=== PATIENT | female | born 1975 | race Caucasian/White ===

== ENCOUNTER 2016-09-28 17:51 | Emergency (ER) | payer SELFPAY ==
[~2016-09-28] VITALS: Ht 154.9 cm; Wt 86.8 kg
[~2016-09-28 17:51] MED LIST: CLIN150 PO; ENDO7.5T10 PO; GABA100C4 PO; HYDR-3580 PO; NORV5TAB PO
[2016-09-28] MEDS ORDERED: ACETAMINOPHEN/HYDROcodone 325 MG/5 MG TAB PO ONE (18:15)
[2016-09-28 18:16] VITALS: BP 156/70; PULSE 63; RESP 16; TEMP 98.1; O2SAT 98
[2016-09-28] MEDS ORDERED: BP med (18:16)
[2016-09-28] MEDS ORDERED: GABA300C5 PO (18:16)
[2016-09-28] MEDS ORDERED: HYDR-3580 PO (18:16)
--- NOTE | 2016-09-28 18:17 | PD ---
HPI Chief Complaint: Numbness/Tingling Time Seen by Provider: 18:13 Travel History International Travel<30 days: Yes Contact w/Intl Traveler<30days: Yes History of Present Illness HPI Is a 41 year-old woman presents to the emergency department complaining of pain in her right hand. She had an ulnar nerve release done about a year or so ago with Dr. Castillo. She saw her yesterday because she thought she was on her current symptoms. She was placed on what sounds like a posterior long-arm splint. She is having worsening symptoms overnight she went to the office and was sent here without evaluation as the office was closed. She describes pain and numbness in the right arm. She also had some numbness in the left arm that was transient. She is due to have an ulnar nerve release on the left side as well. She's had multiple studies done. She reports she also had an MRI done of her neck or ago before the decision to proceed with her right sided surgery. History Past Medical History Narrative Medical Back problems Social History Alcohol Use: No Tobacco Use: No Allergies-Medications (Allergen,Severity, Reaction): Coded Allergies: No Known Allergies (Verified , 03/02/15) Reported Meds & Prescriptions Reported Meds & Active Scripts Active Cleocin (Clindamycin HCl) 150 Mg Cap 300 Mg PO Q6 Endocet 7.5/325 (Oxycodone/Acetaminophen) Tab 1 Tab PO Q6H PRN Reported Hydrocodone/Acetaminophen 7.5 mg/325 mg 1 Tab 1 Tab PO Q4H PRN Gabapentin 100 Mg Cap 100 Mg PO BID Norvasc (Amlodipine Besylate) 5 Mg Tab 5 Mg PO DAILY Review of Systems Except as stated in HPI: all other systems reviewed are Neg Physical Exam Narrative GENERAL: Well-appearing 41 year-old woman, no acute distress. SKIN: Warm and dry. CARDIOVASCULAR: Warm and well perfused. RESPIRATORY: Normal rate and effort. MUSCULOSKELETAL: Focused evaluation of the right upper extremity reveals 2 areas of scarring on the dorsum of the wrist on the ulnar side of the elbow. She has full range of motion of the hand and the elbow. She describes some subjective sensory changes over the entire dorsum of the forearm and the hand. She has full radial/ulnar/median nerve strength in the hand. Wrist elbow and shoulder strength is also full and intact throughout. She has reports reflexes throughout both upper extremities. NEUROLOGICAL: Awake and alert. No gross deficits. Data Data Orders Acetamin-Hydrocod 325-5 Mg ([place] 5-325 (09/28/16 18:15) MDM Medical Decision Making Medical Screen Exam Complete: Yes Emergency Medical Condition: Yes Differential Diagnosis Neurapraxia, peripheral neuropathy, radiculopathy, stroke, other Narrative Course Medical decision-making This is a 41 year-old woman, well-appearing, will. Worsening pain and paresthesias in the right arm. There is related to previous ulnar nerve surgery on both sides entirely clear. States it feels the same. She is no other evidence of stroke. She has normal neurologic exam. Recommend outpatient follow-up with hand surgery as planned. Diagnosis Primary Impression: Paresthesia of right upper extremity Additional Instructions: Follow-up with your primary doctor and with your hand surgeon as discussed. Return to the emergency department for any new or worsening symptoms. Med/Other Pt SpecificInfo: No Change to Meds Disposition: 01 DISCHARGE HOME Condition: Stable Enrique West MD Sep 28, 2016 18:17
--- NOTE | 2016-09-28 19:38 | PD ---
Data Data Last Documented VS Vital Signs Date Time Temp Pulse Resp B/P Pulse Ox O2 Delivery O2 Flow Rate FiO2 09/28/16 18:16 98.1 63 16 156/70 98 Orders Acetamin-Hydrocod 325-5 Mg ([place] 5-325 (09/28/16 18:15) [facility] Medical Record Reviewed: Yes Supervised Visit with NAVIN: No Narrative Course asked to enter order RUE long arm splint for patient's RUE Diagnosis Primary Impression: Paresthesia of right upper extremity Referrals: WILD LACY D.O. (PCP) call for appointment Patient Instructions: General Instructions, Paresthesia (ED) Departure Forms: Tests/Procedures Additional Instruction: Follow-up with your primary doctor and with your hand surgeon as discussed. Return to the emergency department for any new or worsening symptoms. Disposition: 01 DISCHARGE HOME Condition: Stable Hanna Bullard MD Sep 28, 2016 19:38
[2016-09-28 20:41] VITALS: BP_SYST 14; BP_SYST 145; BP_DIAS 75; PULSE 88; RESP 18; O2SAT 99
[2016-09-28 20:43] VITALS: RESP 18
--- NOTE | 2016-09-29 17:03 | EKG ---
Date Performed: 09/28/2016 Time Performed: 18:05:42 PTAGE: 41 years EKG: Sinus rhythm POSSIBLE ANTERIOR MYOCARDIAL INFARCTION POSSIBLE INFERIOR MYOCARDIAL INFARCTION Diffuse ST-T chages anteriorly. Clinical correlation is recommended ABNORMAL ECG. NO PREVIOUS TRACING DOCTOR: Jose Naik Interpretating Date/Time 09/29/2016 17:02:20
== END 2016-09-28 20:44 | disposition home or self-care (01) ==
LOC: PHED 17:51
DX: R20.2 Paresthesia of skin (principal); Z98.890 Other specified postprocedural states
CPT/HCPCS: 29105; 93005

== ENCOUNTER 2017-02-01 23:21 | Inpatient (IN) | payer SELFPAY ==
[~2017-02-01] VITALS: Ht 157.5 cm; Wt 67.1 kg
[~2017-02-01 23:21] MED LIST changes: +BP med; -CLIN150 PO; -ENDO7.5T10 PO; -GABA100C4 PO; +GABA300C5 PO; -NORV5TAB PO
[2017-02-01] MEDS ORDERED: FLUO1TAB3 PO (23:42)
[2017-02-01] MEDS ORDERED: BENA40TA PO (23:42)
--- NOTE | 2017-02-01 23:44 | PD ---
HPI Chief Complaint: Cold / Flu Symptoms Time Seen by Provider: 23:40 Travel History International Travel<30 days: No Contact w/Intl Traveler<30days: No Traveled to known affect area: No History of Present Illness HPI The patient is a 41-year-old female that complains of a cough productive of a slight amount of yellow sputum for one week. She denies any fever but does have bilateral back pain with a cough. She states she is short of breath and has been wheezing. She does not have a nebulizer machine at home. She has a history of chronic back pain and is chronically on hydrocodone/acetaminophen 7.5 /325. She also takes gabapentin and Benzapril for her hypertension. PFSH Past Medical History Hx Anticoagulant Therapy: No Blood Disorders: No Anxiety: Yes Cancer: No Cardiovascular Problems: No Chemotherapy: No Cerebrovascular Accident: No Diabetes: No Diminished Hearing: No Endocrine: No Gastrointestinal Disorders: No Genitourinary: No Hypertension: Yes Immune Disorder: No Musculoskeletal: Yes Neurologic: No Psychiatric: No Reproductive: No Respiratory: No Past Surgical History Hysterectomy: No Other Surgery: Yes (HERNIA) Social History Alcohol Use: Yes (occ) Tobacco Use: No Substance Use: No Allergies-Medications (Allergen,Severity, Reaction): Coded Allergies: No Known Allergies (Verified Adverse Reaction, Unknown, 02/01/17) Reported Meds & Prescriptions Reported Meds & Active Scripts Active Reported Fluoxetine (Fluoxetine HCl) 20 Mg Tab 20 Mg PO DAILY Benazepril (Benazepril HCl) 40 Mg Tab 40 Mg PO DAILY Hydrocodone-Acetaminophen 7.5-325 mg Tab 1 Tab PO Q4H PRN Gabapentin 300 Mg Cap 300 Mg PO BID Review of Systems Except as stated in HPI: all other systems reviewed are Neg Physical Exam Narrative GENERAL: The patient is alert, oriented 3 and slight respiratory distress. SKIN: Focused skin assessment warm/dry. HEAD: Atraumatic. Normocephalic. EYES: Pupils equal and round. No scleral icterus. No injection or drainage. ENT: No nasal bleeding or discharge. Mucous membranes pink and moist. NECK: Trachea midline. No JVD. CARDIOVASCULAR: Regular rate and rhythm. No murmur appreciated. RESPIRATORY: No accessory muscle use. A few widely scattered wheezes are heard in all lung foreman. Breath sounds equal bilaterally. GASTROINTESTINAL: Abdomen soft, non-tender, nondistended. Hepatic and splenic margins not palpable. MUSCULOSKELETAL: No obvious deformities. No clubbing. No cyanosis. No edema. NEUROLOGICAL: Awake and alert. No obvious cranial nerve deficits. Motor grossly within normal limits. Normal speech. PSYCHIATRIC: Appropriate mood and affect; insight and judgment normal. Data Data Last Documented VS Vital Signs Date Time Temp Pulse Resp B/P (MAP) Pulse Ox O2 Delivery O2 Flow Rate FiO2 02/02/17 02:47 78 18 127/60 (82) 100 Room Air 02/01/17 23:48 99.0 Orders Orders Chest, Pa & Lat (02/01/17 23:41) Albuterol-Ipratropium Neb (Duoneb Neb) (02/01/17 23:45) Electrocardiogram (02/02/17 01:34) Complete Blood Count With Diff (02/02/17 01:34) Comprehensive Metabolic Panel (02/02/17 01:34) Lactic Acid Sepsis Protocol (02/02/17 01:34) Pneumococcal Urinary Antigen (02/02/17 01:34) Influenzae A/B Antigen (02/02/17 01:34) Urinalysis - C+S If Indicated (02/02/17 01:34) Blood Culture (02/02/17 01:34) Legionella Urinary Antigen (02/02/17 01:34) Arterial Blood Gas (Abg) (02/02/17 01:34) Sodium Chloride 0.9% Flush (Ns Flush) (02/02/17 01:45) Ceftriaxone Inj (Rocephin Inj) (02/02/17 01:45) Azithromycin Inj (Zithromax Inj) (02/02/17 01:45) Sodium Chlor 0.9% 1000 Ml Inj (Ns 1000 M (02/02/17 02:45) Potassium Chloride (Kcl) (02/02/17 02:45) Admit Order (Ed Use Only) (02/02/17 02:52) Labs Laboratory Tests Test 02/02/17 01:42 02/02/17 02:00 Blood Gas Puncture Site RT RADIAL Blood Gas Patient Temperature 98.6 Blood Gas HCO3 24 mmol/L Blood Gas Base Excess 0.4 mmol/L Blood Gas Oxygen Saturation 92 % Arterial Blood pH 7.44 Arterial Blood Partial Pressure CO2 36 mmHG Arterial Blood Partial Pressure O2 85 mmHG Arterial Blood Oxygen Content 13.5 Vol % Arterial Blood Carboxyhemoglobin 3.7 % Arterial Blood Methemoglobin 1.0 % Blood Gas Hemoglobin 10.3 G/DL Blood Gas Inspired Oxygen 21 % White Blood Count 7.0 TH/MM3 Red Blood Count 3.33 MIL/MM3 Hemoglobin 10.2 GM/DL Hematocrit 31.7 % Mean Corpuscular Volume 95.2 FL Mean Corpuscular Hemoglobin 30.7 PG Mean Corpuscular Hemoglobin Concent 32.3 % Red Cell Distribution Width 14.1 % Platelet Count 172 TH/MM3 Mean Platelet Volume 7.9 FL Neutrophils (%) (Auto) 76.7 % Lymphocytes (%) (Auto) 13.7 % Monocytes (%) (Auto) 8.9 % Eosinophils (%) (Auto) 0.3 % Basophils (%) (Auto) 0.4 % Neutrophils # (Auto) 5.4 TH/MM3 Lymphocytes # (Auto) 1.0 TH/MM3 Monocytes # (Auto) 0.6 TH/MM3 Eosinophils # (Auto) 0.0 TH/MM3 Basophils # (Auto) 0.0 TH/MM3 CBC Comment DIFF FINAL Differential Comment Blood Urea Nitrogen 7 MG/DL Creatinine 0.48 MG/DL Random Glucose 100 MG/DL Total Protein 6.0 GM/DL Albumin 2.7 GM/DL Calcium Level 8.0 MG/DL Alkaline Phosphatase 66 U/L Aspartate Amino Transf (AST/SGOT) 16 U/L Alanine Aminotransferase (ALT/SGPT) 15 U/L Total Bilirubin 0.3 MG/DL Sodium Level 138 MEQ/L Potassium Level 2.8 MEQ/L Chloride Level 105 MEQ/L Carbon Dioxide Level 26.1 MEQ/L Anion Gap 7 MEQ/L Estimat Glomerular Filtration Rate 142 ML/MIN Lactic Acid Level 1.5 mmol/L [facility] Medical Decision Making Medical Screen Exam Complete: Yes Emergency Medical Condition: Yes Medical Record Reviewed: Yes Interpretation(s) The chest x-ray shows bilateral pneumonia. The CBC shows a hemoglobin of 10.2 and hematocrit of 31.7 with 77% neutrophils but is otherwise unremarkable. The blood gases show pH 7.44, CO2 36, PO2 85 with O2 sat 92%. Differential Diagnosis Viral pneumonia, bacterial pneumonia, atypical bacterial pneumonia, bronchiolitis, asthma, congestive heart failure-unlikely, hypoxemia Narrative Course The patient has bilateral pneumonia. She is extremely weak and wants to be admitted. She does not believe that she can make it at home. I discussed the patient with Dr. Villanueva, the patient will be admitted to her. Diagnosis Primary Impression: Bilateral pneumonia Admitting Information Admitting Physician Requests: Admit Haile Sánchez MD Feb 01, 2017 23:44
[2017-02-01 23:48] VITALS: BP 120/58; PULSE 68; RESP 20; TEMP 99; O2SAT 97
[2017-02-01] MEDS: RESP: ALBUTEROL 2.5 MG/IPRATROPIUM 0.5 MG NEB (SCH) INH (23:49)
[2017-02-02 00:37] VITALS: PULSE 86; RESP 18; O2SAT 96
--- NOTE | 2017-02-02 00:59 | RADRPT ---
EXAM DATE/TIME: 02/02/2017 00:29 [place] COMPARISON: No previous studies available for comparison. INDICATIONS : Cough, chest congestion for 2 weeks MEDICAL HISTORY : None. SURGICAL HISTORY : None. ENCOUNTER: Initial ACUITY: 2 weeks PAIN SCORE: 5/10 LOCATION: Bilateral chest FINDINGS: PA and lateral views of the chest. Moderate severity bilateral lower lung zone predominant pulmonary opacity, predominantly interstitial.. Cardiomediastinal silhouette within normal limits. No evidence of pleural effusion or pneumothorax. CONCLUSION: Bilateral lower lung zone predominant pulmonary opacity. Differential diagnosis includes pulmonary ed blaise and infection. Chidi Aguilera MD on February 02, 2017 at 0:56 Board Certified Radiologist. This report was verified electronically.
[2017-02-02] MEDS ORDERED: AZITHROMYCIN INJ 500 MG in SODIUM CHLOR 0.9% 250 ML INJ 250 ML IV ONE (01:45)
[2017-02-02] MEDS ORDERED: SODIUM CHLORIDE 0.9% FLUSH 10 ML FLUSH IVF PRN (01:45)
[2017-02-02] MEDS ORDERED: cefTRIAXone INJ 1,000 MG in SODIUM CHLORIDE 0.9% INJ 100 ML IV ONE (01:45)
[2017-02-02 01:52] VITALS: BP 127/64; PULSE 85; RESP 18; O2SAT 95
[2017-02-02 01:56] LABS: BLOOD GAS BASE EXCESS 0.4 mmol/L (-2-2); BLOOD GAS CARBOXYHEMOGLOBIN 3.7 % (0-4); BLOOD GAS HCO3 24 mmol/L (22-26); BLOOD GAS O2 HGB SATURATION 92 % (90-100); BLOOD GAS OXYGEN CONTENT 13.5 Vol % (12.0-20.0); BLOOD GAS PCO2 36 mmHG (38-42); BLOOD GAS PO2 85 mmHG (61-120); BLOOD GAS TOTAL HGB 10.3 G/DL (12.0-16.0); CRITICAL VALUE NO; DRAW SITE RT RADIAL; FIO2 21 %; NUMBER OF ARTERIAL PUNCTURES 1; STAT YES; TEMP CORR TO 98.6; ULNAR PULSE Y
[2017-02-02 02:12] LABS: AUTOMATED NEUTROPHIL # 5.4 TH/MM3 (1.8-7.7); BASOPHIL % 0.4 % (0.0-2.0); EOSINOPHIL % 0.3 % (0.0-4.0); HEMATOCRIT 31.7 % (35.0-46.0); HEMO FLAGS DIFF FINAL; LYMPH % 13.7 % (9.0-44.0); MEAN CELL VOLUME 95.2 FL (80.0-100.0); MEAN CORPUSCULAR HEMOGLOBIN 30.7 PG (27.0-34.0); MEAN CORPUSCULAR HGB CONC 32.3 % (32.0-36.0); MONO % 8.9 % (0.0-8.0); NEUT % 76.7 % (16.0-70.0); PLATELET COUNT 172 TH/MM3 (150-450); RED BLOOD COUNT 3.33 MIL/MM3 (4.00-5.30); RED CELL DISTRIBUTION WIDTH 14.1 % (11.6-17.2)
[2017-02-02 02:33] LABS: ALKALINE PHOSPHATASE 66 U/L (45-117); ALT (GPT) 15 U/L (10-53); ANION GAP 7 MEQ/L (5-15); AST (GOT) 16 U/L (15-37); BICARBONATE 26.1 MEQ/L (21.0-32.0); BLOOD UREA NITROGEN 7 MG/DL (7-18); CHLORIDE 105 MEQ/L (98-107); GLOMERULAR FILTRATION RATE 142 ML/MIN (>89); SODIUM (NA) 138 MEQ/L (136-145); TOTAL BILIRUBIN ADULT 0.3 MG/DL (0.2-1.0)
[2017-02-02 02:34] LABS: POTASSIUM 2.8 MEQ/L (3.5-5.1)
[2017-02-02] MEDS: SODIUM CHLOR 0.9% 1000 ML INJ 1,000 ML IV SCH ×2 (02:42→03:23)
[2017-02-02] MEDS ORDERED: POTASSIUM CHLORIDE 20 MEQ CONTROLLED RELEASE TAB PO ONE (02:45)
[2017-02-02 02:47] VITALS: BP 127/60; PULSE 78; RESP 18; O2SAT 100
[2017-02-02] MEDS ORDERED: SODIUM CHLORIDE 0.9% FLUSH 10 ML FLUSH IV FLUSH PRN (03:00)
[2017-02-02] MEDS ORDERED: LACTULOSE SYRUP 20 GM/30 ML CUP PO PRN (03:00)
[2017-02-02] MEDS ORDERED: BISACODYL 10 MG SUPP RECTAL PRN (03:00)
[2017-02-02] MEDS ORDERED: RESP: ALBUTEROL 2.5 MG/IPRATROPIUM 0.5 MG NEB (PRN) NEB (03:00)
[2017-02-02] MEDS ORDERED: SENNOSIDES 8.6 MG TAB PO PRN (03:00)
[2017-02-02] MEDS ORDERED: ACETAMINOPHEN/HYDROcodone 325 MG/5 MG TAB PO PRN (03:00)
[2017-02-02] MEDS ORDERED: MAGNESIUM HYDROXIDE SUSP 30 ML CUP PO PRN (03:00)
[2017-02-02] MEDS ORDERED: ONDANSETRON HCL 4 MG/2 ML VIAL IVP PRN (03:00)
[2017-02-02] MEDS ORDERED: ACETAMINOPHEN 325 MG TAB PO PRN (03:00)
[2017-02-02] MEDS: ACETAMINOPHEN/HYDROcodone 325 MG/10 MG TAB PO PRN ×2 (03:22→11:11)
[2017-02-02 05:13] LABS: BLOOD, URINE NEG (NEG); GLUCOSE,URINE NEG (NEG); KETONE, URINE NEG (NEG); NITRITE,URINE NEG (NEG)
[2017-02-02 05:15] VITALS: BP 125/75; PULSE 71; RESP 17; TEMP 98; O2SAT 98
[2017-02-02 05:21] LABS: RBC, URINE 0-2 /hpf (0-3); SQUAMOUS EPITHELIAL CELL URINE 0-5 /hpf (0-5); URINE COLOR YELLOW (YELLW/STRAW); WBC, URINE 0-2 /hpf (0-5)
[2017-02-02 05:22] LABS: COMMENT (UR) CULT NOT INDICATED; CULTURE IF INDICATED CULT NOT INDICATED
[2017-02-02 08:00] VITALS: BP 131/78; PULSE 57; RESP 16; TEMP 98; O2SAT 98
[2017-02-02] MEDS ORDERED: DOCUSATE SODIUM 50 MG/SENNA 8.6 MG TAB PO SCH (09:00)
[2017-02-02] MEDS ORDERED: SODIUM CHLORIDE 0.9% FLUSH 10 ML FLUSH IV FLUSH SCH (09:00)
[2017-02-02 12:00] VITALS: BP 144/69; PULSE 58; RESP 18; TEMP 97.7; O2SAT 96
--- NOTE | 2017-02-02 12:25 | HHI.HP ---
HPI Service [facility] Primary Care Physician Rafa Cardenas D.O. Admission Diagnosis Bilateral pneumonia Diagnoses: (1) Bilateral pneumonia Chief Complaint: Productive cough and dyspnea Travel History International Travel<30 Days: No Contact w/Intl Traveler <30 Da: No Traveled to Known Affected Are: No History of Present Illness Written by Nesha Ni, acting as scribe for Dr. Rob on 02/02/17 at 12:17. This is a 41-year-old female patient with a known medical history of hypertension, peripheral neuropathy and tobacco use who presented to the ED with complaints of worsening productive cough. Patient states that the cough started roughly 1 week ago and has progressively got worse. Does admit to subjective fevers and yellow colored sputum. Does admit to associated shortness of breath and wheezing. Denies any recent headache, chest pain, abdominal pain, n/v/d or dysuria. Denies any recent sick contacts or recent antibiotic use. Does admit to current tobacco use. PCP is Dr. Cardenas. Denies any prior pneumonia or lung disease in the past. Review of Systems Constitutional: COMPLAINS OF: Fever, Chills Eyes: DENIES: Diplopia Respiratory: COMPLAINS OF: Cough, Sputum production, Shortness of breath Cardiovascular: DENIES: Chest pain, Palpitations Gastrointestinal: DENIES: Abdominal pain, Black stools, Bloody stools, Constipation, Diarrhea, Nausea, Vomiting Musculoskeletal: DENIES: Joint pain Psychiatric: DENIES: Anxiety Except as stated in HPI: all other systems reviewed are Neg Past Family Social History Past Medical History Hypertension Peripheral neuropathy Tobacco abuse Past Surgical History Hysterectomy Hernia repair Back surgery Right hand abscess Ulnar repair Reported Medications Active Reported Fluoxetine (Fluoxetine HCl) 20 Mg Tab 20 Mg PO DAILY Benazepril (Benazepril HCl) 40 Mg Tab 40 Mg PO DAILY Hydrocodone-Acetaminophen 7.5-325 mg Tab 1 Tab PO Q4H PRN Gabapentin 300 Mg Cap 300 Mg PO BID Allergies: Coded Allergies: No Known Allergies (Verified Allergy, Unknown, 02/02/17) Active Ordered Medications Current Medications Medications (Trade) Dose Ordered Sig/Bessie Route Start Time Stop Time Status Last Admin Ceftriaxone Sodium 1000 mg/ Sodium Chloride 100 ml @ 200 mls/hr Q24H IV 02/02/17 23:00 Azithromycin 500 mg/Sodium Chloride 250 ml @ 250 mls/hr Q24H IV 02/02/17 23:00 (Duoneb Neb) 1 ampule Q4HR NEB PRN NEB 02/02/17 03:00 (NS Flush) 2 ml UNSCH PRN IV FLUSH 02/02/17 03:00 (NS Flush) 2 ml BID IV FLUSH 02/02/17 09:00 (Zofran Inj) 4 mg Q6H PRN IVP 02/02/17 03:00 (Tylenol) 650 mg Q6H PRN PO 02/02/17 03:00 ([place] 5-325 Mg) 1 tab Q4H PRN PO 02/02/17 03:00 ([place] 10-325 Mg) 1 tab Q4H PRN PO 02/02/17 03:00 02/02/17 11:11 (Isabelle-Colace) 1 tab BID PO 02/02/17 09:00 (Milk Of Magnesia Liq) 30 ml Q12H PRN PO 02/02/17 03:00 (Senokot) 17.2 mg Q12H PRN PO 02/02/17 03:00 (Dulcolax Supp) 10 mg DAILY PRN RECTAL 02/02/17 03:00 (Lactulose Liq) 30 ml DAILY PRN PO 02/02/17 03:00 (Flu (Quadrivalent) Vaccine Inj) 0.5 ml ONCE ONCE IM 02/03/17 10:00 02/03/17 10:01 Family History Father at the age of 40 of an [place]. Sister does have a history of cardiovascular disease. Social History Does admit to smoking 1/2 ppd currently x 1 year. Had quit for 10 years and prior to that she smoked 2 ppd x 12 years. Admits to occasional marijuana use. Physical Exam Vital Signs Vital Signs Date Time Temp Pulse Resp B/P (MAP) Pulse Ox O2 Delivery O2 Flow Rate FiO2 02/02/17 08:00 98.0 57 16 131/78 (95) 98 02/02/17 05:15 98.0 71 17 125/75 (92) 98 02/02/17 02:47 78 18 127/60 (82) 100 Room Air 02/02/17 01:52 85 18 127/64 (85) 95 Room Air 02/02/17 00:37 86 18 96 Room Air 02/01/17 23:48 99.0 68 20 120/58 (78) 97 Room Air 02/01/17 23:44 97 Room Air Physical Exam GENERAL: This is a well-nourished, well-developed female patient, lying in bed in no apparent distress. SKIN: No rashes, ecchymoses or lesions. Warm and dry. HEENT: Atraumatic. Normocephalic. Pupils equal round and reactive. Extraocular motions intact. No scleral icterus. No injection or drainage. Nose without bleeding. Airway patent. NECK: Trachea midline. No JVD. Supple. CARDIOVASCULAR: Regular rate and rhythm without murmurs, gallops, or rubs. RESPIRATORY: Clear to auscultation. Breath sounds equal bilaterally. No wheezes , rales, or rhonchi. GASTROINTESTINAL: Abdomen soft, non-tender, nondistended. No guarding. MUSCULOSKELETAL: Extremities without clubbing, cyanosis, or edema. No joint tenderness, effusion, or edema noted. NEUROLOGICAL: Awake and alert. Cranial nerves II through XII intact. Motor and sensory grossly within normal limits. Five out of 5 muscle strength in all muscle groups. Normal speech. Laboratory Laboratory Tests Test 02/02/17 01:42 02/02/17 02:00 02/02/17 04:45 Blood Gas Puncture Site RT RADIAL Blood Gas Patient Temperature 98.6 Blood Gas HCO3 24 Blood Gas Base Excess 0.4 Blood Gas Oxygen Saturation 92 Arterial Blood pH 7.44 Arterial Blood Partial Pressure CO2 36 Arterial Blood Partial Pressure O2 85 Arterial Blood Oxygen Content 13.5 Arterial Blood Carboxyhemoglobin 3.7 Arterial Blood Methemoglobin 1.0 Blood Gas Hemoglobin 10.3 Blood Gas Inspired Oxygen 21 White Blood Count 7.0 Red Blood Count 3.33 Hemoglobin 10.2 Hematocrit 31.7 Mean Corpuscular Volume 95.2 Mean Corpuscular Hemoglobin 30.7 Mean Corpuscular Hemoglobin Concent 32.3 Red Cell Distribution Width 14.1 Platelet Count 172 Mean Platelet Volume 7.9 Neutrophils (%) (Auto) 76.7 Lymphocytes (%) (Auto) 13.7 Monocytes (%) (Auto) 8.9 Eosinophils (%) (Auto) 0.3 Basophils (%) (Auto) 0.4 Neutrophils # (Auto) 5.4 Lymphocytes # (Auto) 1.0 Monocytes # (Auto) 0.6 Eosinophils # (Auto) 0.0 Basophils # (Auto) 0.0 CBC Comment DIFF FINAL Differential Comment Blood Urea Nitrogen 7 Creatinine 0.48 Random Glucose 100 Total Protein 6.0 Albumin 2.7 Calcium Level 8.0 Alkaline Phosphatase 66 Aspartate Amino Transf (AST/SGOT) 16 Alanine Aminotransferase (ALT/SGPT) 15 Total Bilirubin 0.3 Sodium Level 138 Potassium Level 2.8 Chloride Level 105 Carbon Dioxide Level 26.1 Anion Gap 7 Estimat Glomerular Filtration Rate 142 Lactic Acid Level 1.5 Urine Color YELLOW Urine Turbidity CLEAR Urine pH 6.0 Urine Specific [place] 1.018 Urine Protein NEG Urine Glucose (UA) NEG Urine Ketones NEG Urine Occult Blood NEG Urine Nitrite NEG Urine Bilirubin NEG Urine Leukocyte Esterase NEG Urine RBC 0-2 Urine WBC 0-2 Urine Squamous Epithelial Cells 0-5 Urine Bacteria NONE Microscopic Urinalysis Comment CULT NOT INDICATED Date/Time Source Procedure Growth Status 02/02/17 02:04 Blood Peripheral Aerobic Blood Culture Pending Received 02/02/17 02:04 Blood Peripheral Anaerobic Blood Culture Pending Received 02/02/17 02:00 Nasal Washing Influenza Types A,B Antigen (TOYIN) - Final NEGATIVE FOR FLU A AND B ANTIGEN.... Complete 02/02/17 04:45 Urine Random Urine Legionella Antigen - Final PRESUMPTIVE NEGATIVE FOR LEGIONELLA P... Complete 02/02/17 04:45 Urine Random Urine Streptococcus pneumoniae Antigen (M - Final PRESUMPTIVE NEGATIVE FOR STREPTOCOCCU... Complete Result Diagram: 02/02/17 0200 02/02/17 0200 Imaging Last Impressions Chest X-Ray 02/01/17 2341 Signed Impressions: Service Date/Time: Thursday, February 02, 2017 00:29 - CONCLUSION: Bilateral lower lung zone predominant pulmonary opacity. Differential diagnosis includes pulmonary edema and infection. Chidi Aguilera MD Septic Shock Reassessment Septic shock perfusion: reassessment completed Caprini VTE Risk Assessment Caprini VTE Risk Assessment: No/Low Risk (score <= 1) Caprini Risk Assessment Model Point Value = 1 Point Value = 2 Point Value = 3 Point Value = 5 Age 41-60 Minor surgery BMI > 25 kg/m2 Swollen legs Varicose veins or History of unexplained or recurrent spontaneous Oral contraceptives or hormone replacement Sepsis (< 1 month) Serious lung disease, including pneumonia (< 1 month) Abnormal pulmonary function Acute myocardial infarction Congestive heart failure (< 1 month) History of inflammatory bowel disease Medical patient at bed rest Age 61-74 Arthroscopic surgery Major open surgery (> 45 min) Laparoscopic surgery (> 45 min) Malignancy Confined to bed (> 72 hours) Immobilizing plaster cast Central venous access Age >= 75 History of VTE Family history of VTE Factor V Leiden Prothrombin [id number] Lupus anticoagulant Anticardiolipin antibodies Elevated serum homocysteine Heparin-induced thrombocytopenia Other congenital or acquired thrombophilia Stroke (< 1 month) Elective arthroplasty Hip, pelvis, or leg fracture Acute spinal cord injury (< 1 month) Prophylaxis Regimen Total Risk Factor Score Risk Level Prophylaxis Regimen 0-1 Low Early ambulation 2 Moderate Order ONE of the following: *Sequential Compression Device (SCD) *Heparin 5000 units SQ BID 3-4 Higher Order ONE of the following medications: *Heparin 5000 units SQ TID *Enoxaparin/Lovenox 40 mg SQ daily (WT < 150 kg, CrCl > 30 mL/min) *Enoxaparin/Lovenox 30 mg SQ daily (WT < 150 kg, CrCl > 10-29 mL/min) *Enoxaparin/Lovenox 30 mg SQ BID (WT < 150 kg, CrCl > 30 mL/min) AND/OR *Sequential Compression Device (SCD) 5 or more Highest Order ONE of the following medications: *Heparin 5000 units SQ TID (Preferred with Epidurals) *Enoxaparin/Lovenox 40 mg SQ daily (WT < 150 kg, CrCl > 30 mL/min) *Enoxaparin/Lovenox 30 mg SQ daily (WT < 150 kg, CrCl > 10-29 mL/min) *Enoxaparin/Lovenox 30 mg SQ BID (WT < 150 kg, CrCl > 30 mL/min) AND *Sequential Compression Device (SCD) Assessment and Plan Problem List: (1) Bilateral pneumonia ICD Code: J18.9 - Pneumonia, unspecified organism Status: Acute Plan: CBC reviewed, no leukocytosis. No fevers. Chest x ray reviewed showing bilateral lower lung pulmonary opacity. Patient was given IV Azithromycin and IV Ceftriaxone. Status post IVF in ED. Duonebs available PRN. Discharge with script for Nebulizer and solution. Declines pneumonia and influenza vaccine. Patient has improved and would like to go home. Patient will follow up with PCP upon discharge. Recommendations for referral to Casing Splitter and outpatient PFTs. Will discharge on steroid dose pack and Levaquin. Encouraged patient to finish antibiotic dose and to quit smoking. Return to ED if symptoms worsen. Patient is stable at this time and agreeable to the plan. (2) Tobacco abuse ICD Code: Z72.0 - Tobacco use Plan: Patient counselled and encouraged cessation. Assessment and Plan Discharge patient to home Condition on discharge: Improved Regular Diet as tolerated Ad [place] activity Rx written: See notes. Follow-up with primary care physician with recs to perform outpatient PFTs and follow up with liquid loader. Physician Certification 2 Midnight Certification Type: Admission for Inpatient Services Order for Inpatient Services The services are ordered in accordance with Medicare regulations or non- Medicare payer requirements, as applicable. In the case of services not specified as inpatient-only, they are appropriately provided as inpatient services in accordance with the 2-midnight benchmark. Estimated LOS (days): 1 1 days is the estimated time the patient will need to remain in the hospital, assuming treatment plan goals are met and no additional complications. Post-Hospital Plan: Home Medical Decision Making Impression and Plan This note was transcribed by mata [[email or web address]]. I, Dr. Anuradha Rob personally performed the history, physical exam, and medical decision making; and confirmed the accuracy of the information in the transcribed note. Patient seen in room. Plan of care and treatment discussed with patient at length. replace potassium Authenticated by Dr. Anuradha Rob on 02/02/17 at 13:13. Nesha Ni Feb 02, 2017 12:25 Anuradha Rob MD Feb 02, 2017 13:15
[2017-02-02] MEDS ORDERED: NEBULIZER1 MI1 (12:31)
[2017-02-02] MEDS ORDERED: Albuterol-Ipratropium Neb NEB (12:34)
[2017-02-02] MEDS ORDERED: MEDR4PAK PO (12:36)
--- NOTE | 2017-02-02 12:39 | HHI.DCPOC ---
Discharge Care Plan Diagnosis: (1) Bilateral pneumonia (2) Tobacco abuse Goals to Promote Your Health * To prevent worsening of your condition and complications * To maintain your health at the optimal level Directions to Meet Your Goals Take your medications as prescribed Follow your dietary instruction Follow activity as directed Keep your appointments as scheduled Take your immunizations and boosters as scheduled If your symptoms worsen call your PCP, if no PCP go to Urgent Care Center or Emergency Room Smoking is Dangerous to Your Health. Avoid second hand smoke Call the 24-hour hour crisis hotline for domestic abuse at Please follow up with PCP upon discharge. Recommend PFT outpatient and establish with a psychometrist. Encouraged to stop smoking. Nesha Ni Feb 02, 2017 12:39
[2017-02-02] MEDS ORDERED: LEVA750T9 PO (12:42)
[2017-02-02 13:53] LABS: POTASSIUM 3.5 MEQ/L (3.5-5.1)
[2017-02-02 13:56] LABS: BICARBONATE 25.2 MEQ/L (21.0-32.0)
[2017-02-02] MEDS ORDERED: cefTRIAXone INJ 1,000 MG in SODIUM CHLORIDE 0.9% INJ 100 ML IV SCH (23:00)
[2017-02-02] MEDS ORDERED: AZITHROMYCIN INJ 500 MG in SODIUM CHLOR 0.9% 250 ML INJ 250 ML IV SCH (23:00)
[2017-02-03] MEDS ORDERED: INFLUENZA VIRUS VACCINE (QUADRIVALENT) 0.5 ML SYR IM ONE (10:00)
--- NOTE | 2017-02-03 10:07 | EKG ---
Date Performed: 02/02/2017 Time Performed: 01:51:03 PTAGE: 41 years EKG: Sinus rhythm POSSIBLE LEFT ATRIAL ENLARGEMENT POSSIBLE ANTERIOR MYOCARDIAL INFARCTION ABNORMAL ECG PREVIOUS TRACING : 09/28/2016 18.05 DOCTOR: Neo Reed Interpretating Date/Time 02/03/2017 10:06:27
== END 2017-02-02 17:04 | disposition home or self-care (01) | DRG 195 ==
LOC: PHED 23:21 → PHEDA 02-02 02:53 → PH3A 02-02 04:34
PROVIDERS: ADMIT Hospitalist; ATTEND Hospitalist
DX: J18.9 Pneumonia, unspecified organism (principal); G62.9 Polyneuropathy, unspecified; I10 Essential (primary) hypertension; M54.9 Dorsalgia, unspecified; G89.29 Other chronic pain; F41.9 Anxiety disorder, unspecified; F12.90 Cannabis use, unspecified, uncomplicated; F17.210 Nicotine dependence, cigarettes, uncomplicated
CPT/HCPCS: 36600; 71020; 80048; 80053; 81001; 82805; 83605; 85025; 87040; 87449; 87804; 93005; 94640; 94664; 96365; J0456; J0696; J7030; J7050

== ENCOUNTER 2017-07-09 21:00 | Emergency (ER) | payer SELFPAY ==
[~2017-07-09] VITALS: Ht 157.5 cm; Wt 70.7 kg
[~2017-07-09 21:00] MED LIST changes: +Albuterol-Ipratropium Neb NEB; +BENA40TA PO; -BP med; +FLUO1TAB3 PO; +LEVA750T9 PO; +MEDR4PAK PO; +NEBULIZER1 MI1
[2017-07-09 21:10] VITALS: BP 140/84; PULSE 83; RESP 16; TEMP 98.5; O2SAT 100
[2017-07-09] MEDS ORDERED: IBUP-232 PO ×2 (21:25→23:51)
[2017-07-09] MEDS ORDERED: LOTE20TA PO (21:25)
[2017-07-09] MEDS ORDERED: SODIUM CHLOR 0.9% 1000 ML INJ 1,000 ML IV SCH (21:40)
[2017-07-09] MEDS ORDERED: KETOROLAC TROMETHAMINE 30 MG/ML (IVP) VIAL IVP ONE (21:45)
[2017-07-09] MEDS ORDERED: MORPHINE SULFATE 4 MG/ML INJ IV PUSH ONE (21:45)
[2017-07-09] MEDS ORDERED: ONDANSETRON ODT 4 MG TAB PO ONE (21:45)
[2017-07-09] MEDS ORDERED: SODIUM CHLORIDE 0.9% FLUSH 10 ML FLUSH IV FLUSH PRN (21:45)
--- NOTE | 2017-07-09 21:54 | PD ---
HPI Chief Complaint: Abdominal Pain Time Seen by Provider: 21:31 Travel History International Travel<30 days: No Contact w/Intl Traveler<30days: No Traveled to known affect area: No History of Present Illness HPI The patient is a 42-year-old female who presents to the emergency department for right inguinal pain. The patient has a history of previous hernia repair by Dr. Patrick in [place], [place], several years ago. She has had some intermittent discomfort over the scar area. However, the patient states she was performing activities several days ago when she developed a sudden sharp pain in the affected area. She does have pain that locates from the lateral right hip down into the right inguinal region with some discomfort over the previous incisional scar. She does note the symptoms are similar to her previous hernia. She also states occasionally pain radiates down the right leg and feels like she is losing circulation in the right lower extremity. She denies any numbness or tingling of the right leg. She denies any associated nausea, vomiting, or change in bowel habits. Symptoms are moderate. PFSH Past Medical History Hx Anticoagulant Therapy: No Blood Disorders: No Anxiety: Yes Heart Rhythm Problems: Yes Cancer: No Cardiovascular Problems: Yes (HTN) Chemotherapy: No Cerebrovascular Accident: No Diabetes: No Diminished Hearing: No Endocrine: No Gastrointestinal Disorders: No Genitourinary: No Hypertension: Yes Immune Disorder: No Implanted Vascular Access Dvce: Yes Musculoskeletal: Yes Neurologic: No Psychiatric: Yes Reproductive: No Respiratory: No ?: Not LMP: 06/24/17 Past Surgical History Abdominal Surgery: Yes (hernia) Body Medical Devices: TITANIUM CAGE, RODS, SCREWS IN BACK Hysterectomy: No Other Surgery: Yes (HERNIA) Social History Alcohol Use: Yes ([facility]) Tobacco Use: Yes Substance Use: Yes ([facility]) Allergies-Medications (Allergen,Severity, Reaction): Coded Allergies: No Known Allergies (Verified Allergy, Unknown, 07/09/17) Reported Meds & Prescriptions Reported Meds & Active Scripts Active Reported Ibuprofen 600 Mg Tab 600 Mg PO Q6H PRN Lotensin (Benazepril HCl) 20 Mg Tab 20 Mg PO DAILY Review of Systems Except as stated in HPI: all other systems reviewed are Neg General / Constitutional: No: Fever Gastrointestinal: No: Nausea, Vomiting, Abdominal Pain Genitourinary: Positive: Pelvic Pain (As noted in a history of present illness) , No: Dysuria, Discharge, Vaginal Bleeding Musculoskeletal: Positive: Pain Skin: No Rash Neurologic: No: Paresthesia, Sensory Disturbance Physical Exam Narrative GENERAL: Awake, alert, pleasant 42-year-old female who appears her stated age and is in no acute respiratory distress. SKIN: Focused skin assessment warm/dry. HEAD: Atraumatic. Normocephalic. EYES: Pupils equal and round. No scleral icterus. No injection or drainage. ENT: No nasal bleeding or discharge. Mucous membranes pink and moist. NECK: Trachea midline. No JVD. CARDIOVASCULAR: Regular rate and rhythm. No murmur appreciated. RESPIRATORY: No accessory muscle use. Clear to auscultation. Breath sounds equal bilaterally. GASTROINTESTINAL: Abdomen soft, tender to palpation over the incisional scar in the right suprapubic mons area. No obvious hernia noted. MUSCULOSKELETAL: No obvious deformities. No clubbing. No cyanosis. No edema. Positive dorsalis pedal pulses bilateral. Patient is able to fully flex and extend the hips and knees bilaterally. NEUROLOGICAL: Awake and alert. No obvious cranial nerve deficits. Motor grossly within normal limits. Normal speech. Nonfocal. PSYCHIATRIC: Appropriate mood and affect; insight and judgment normal. Data Data Last Documented VS Vital Signs Date Time Temp Pulse Resp B/P (MAP) Pulse Ox O2 Delivery O2 Flow Rate FiO2 07/09/17 21:10 98.5 83 16 140/84 (102) [address] Abd/Pel W Iv Contrast(Rout) (07/09/17 21:40) Iv Access Insert/Monitor (07/09/17 21:40) Ecg Monitoring (07/09/17 21:40) Oximetry (07/09/17 21:40) Morphine Inj (Morphine Inj) (07/09/17 21:45) Sodium Chlor 0.9% 1000 Ml Inj (Ns 1000 M (07/09/17 21:40) Sodium Chloride 0.9% Flush (Ns Flush) (07/09/17 21:45) Ketorolac Inj (Toradol Inj) (07/09/17 21:45) Ondansetron Odt (Zofran Odt) (07/09/17 21:45) Iohexol 350 Inj (Omnipaque 350 Inj) (07/09/17 23:36) [facility] Medical Decision Making Medical Screen Exam Complete: Yes Emergency Medical Condition: Yes Medical Record Reviewed: Yes Interpretation(s) CT of the abdomen and pelvis with contrast reveals the gas pattern appears unremarkable. Small left renal cyst. Unremarkable gallbladder. Status post lumbar fusion at the L4-L5 level. Inguinal reveals no lymphadenopathy or hernia. Differential Diagnosis Differential diagnosis includes femoral hernia, inguinal hernia, radiculopathy, inferior pubic rami fracture, neuralgia, ovarian cyst, appendicitis, muscular skeletal pain. Narrative Course IV was established, labs are drawn and sent, and the patient was placed on cardiac telemetry monitoring and continuous pulse oximetry monitoring. CT of the abdomen and pelvis with IV contrast was ordered to evaluate for possible femoral/inguinal hernia. The patient was administered morphine, Toradol, Zofran , and IV fluids. CT of the abdomen and pelvis reveals no acute findings, the inguinal area revealed no lymphadenopathy or hernia. The patient may have neuralgia and/or radiculopathy from the hip to the inguinal region. She is stable for outpatient follow-up. She will be placed on anti-inflammatories and is advised to follow-up with a primary physician and general surgeon. Diagnosis Primary Impression: Right inguinal pain Patient Instructions: General Instructions Additional Instructions: Please provide the patient a copy of her CT results at discharge. Follow-up with your primary physician and your general surgeon. Ibuprofen as directed. Activity as tolerated. Med/Other Pt SpecificInfo: Prescription(s) given Scripts Ibuprofen (Ibuprofen) 600 Mg Tab 600 MG PO Q6H Y for Pain/Inflammation, #20 TAB 0 Refills Prov: Vishnu Montez MD 07/09/17 Disposition: DISCHARGE HOME Condition: Stable Vishnu Montez MD July 09, 2017 21:53
[2017-07-09] MEDS ORDERED: IOHEXOL 350 MG/ML 10 ML VIAL (for RAD DIAG) IVCONTRAST ONE (23:36)
--- NOTE | 2017-07-09 23:44 | RADRPT ---
EXAM DATE/TIME: 07/09/2017 23:17 [facility] COMPARISON: No previous studies available for comparison. INDICATIONS : Right lower quadrant pain. History of inguinal hernia repair. IV CONTRAST: 75 cc Omnipaque 350 (iohexol) IV ORAL CONTRAST: No oral contrast ingested. RADIATION DOSE: 9.09 CTDIvol (mGy) MEDICAL HISTORY : Hypertension. SURGICAL HISTORY : Inguinal hernia repair. Fusion, lumbar. ENCOUNTER: Initial ACUITY: 1 day PAIN SCALE: 8/10 LOCATION: Right lower quadrant TECHNIQUE: Volumetric scanning of the abdomen and pelvis was performed. Using automated exposure control and ad justment of the mA and/or kV according to patient size, radiation dose was kept as low as reasonably achievable to obtain optimal diagnostic quality images. DICOM format image data is available electro nically for review and comparison. FINDINGS: LOWER LUNGS: The visualized lower lungs are clear. LIVER: Homogeneous density without lesion. There is no dilation of the biliary tree. No calcified gallston es. SPLEEN: Normal size without lesion. PANCREAS: Within normal limits. KIDNEYS: Normal in size and shape. There is no solid mass, stone or hydronephrosis. There is a small left artur al cyst. ADRENAL GLANDS: Within normal limits. VASCULAR: There is no aortic aneurysm. BOWEL/MESENTERY: No oral contrast was given limiting the sensitivity of the exam. The stomach, small bowel, and colon demonstrate no acute abnormality. There is no free intraperitoneal air or fluid. ABDOMINAL WALL: Within normal limits. RETROPERITONEUM: There is no lymphadenopathy. BLADDER: No wall thickening or mass. REPRODUCTIVE: Within normal limits. INGUINAL: There is no lymphadenopathy or hernia. MUSCULOSKELETAL: Postsurgical changes are noted in the lumbar spine status post fusion at the L4-5 level. CONCLUSION: 1. The gas pattern appears unremarkable. 2. Small left renal cyst. 3. Unremarkable gallbladder. 4. Status post lumbar fusion at the L4-5 level. Humphrey Porter MD on July 09, 2017 at 23:39 Board Certified Radiologist. This report was verified electronically.
[2017-07-10 00:21] VITALS: BP 138/72
== END 2017-07-10 00:24 | disposition home or self-care (01) ==
LOC: PHED 21:00
DX: R10.31 Right lower quadrant pain (principal); N28.1 Cyst of kidney, acquired; F41.9 Anxiety disorder, unspecified; I10 Essential (primary) hypertension; F12.90 Cannabis use, unspecified, uncomplicated; Z72.0 Tobacco use
CPT/HCPCS: 74177; 96361; 96374; 96375; 99284; J1885; J2270; J7030; Q9967